=== PATIENT | male | born 1965 | race Caucasian/White ===

== ENCOUNTER 2016-08-02 11:13 | Day surgery (SDC) | payer OTHER ==
[~2016-08-02] VITALS: Ht 177.8 cm; Wt 89.3 kg
[~2016-08-02 11:13] MED LIST: ALPR0.5T6 ORAL; OMEP20CA16 PO
[2016-08-02 12:10] VITALS: BP 113/73; PULSE 79; RESP 16
[2016-08-02 12:17] VITALS: Ht 177.8 cm; Wt 89.3 kg
[2016-08-02] MEDS ORDERED: FAMO20TA18 PO (12:27)
[2016-08-02] MEDS ORDERED: PROPOFOL 20 ML ONE (12:57)
[2016-08-02 13:32] VITALS: BP 113/69; PULSE 64; RESP 12
[2016-08-02 13:55] VITALS: BP 110/74; PULSE 66; RESP 24
--- NOTE | 2016-08-02 14:33 | GILP ---
DATE OF PROCEDURE: NAME OF PROCEDURES: Esophagogastroduodenoscopy and biopsy. SURGEON: Lynne Frausto MD PREOPERATIVE DIAGNOSES: 1. Abdominal pain. 2. Chronic heartburn. POSTOPERATIVE DIAGNOSES: 1. Hiatal hernia. 2. Gastroesophageal reflux disease. 3. Gastritis with erosions. 4. Gastric mucosal biopsies were taken for Helicobacter pylori test. INDICATION FOR THE PROCEDURE: Mr. Johann Reddy is a 51-year-old male patient who had upper abdomin al pain and chronic heartburn, not responding to therapy. The patient was scheduled for endoscopic examination for further evaluation. The procedure and possible complications are well explained to the patient. The patient understood and consented to the procedure. DESCRIPTION OF PROCEDURE: Under the influence of anesthesia, the gastroscope was carefully introduc ed into the esophagus, and under direct vision, it was advanced to the stomach and through the pylor us into the duodenal bulb and descending duodenum. FINDINGS: ESOPHAGUS: The patient had hiatal hernia and gastroesophageal reflux disease. STOMACH: He had gastritis with erosions. Gastric mucosal biopsies were taken for H pylori test. DUODENUM: Normal. He tolerated the procedure very well and there was no complication from the procedure. At the end o f the procedure, he was awake with stable vital signs and he was discharged home to the care of his family. IMPRESSION: 1. Hiatal hernia. 2. Gastroesophageal reflux disease. 3. Gastritis with erosions. 4. Gastric mucosal biopsies were taken for Helicobacter pylori test. PLAN: 1. Omeprazole 40 mg p.o. every morning. 2. Await H pylori test report. Dictated By: LYNNE MCLEAN/PAT Conf#: [id number] DID#: [id number]
--- NOTE | 2016-08-05 14:32 | CONS ---
DATE OF ADMISSION: 08/02/2016 DATE OF CONSULTATION: TYPE OF CONSULTATION: Preoperative gastroenterology. I thank you very much for this kind referral. HISTORY OF PRESENT ILLNESS: Mr. Johann Reddy is a 51-year-old male patient who has been referred t o me for further evaluation of abdominal pain. The patient says he has got epigastric pain and chrome cleaner lydia heartburn not responding to therapy. At times the pain is severe. The patient went to the [facility] room. He had abdominal CT scan done, and it was negative. There is no past history of peptic ulcer disease. He is not taking any nonsteroidal anti-inflammatory agents. His appetite has been good, and he is not losing any weight. There is no history of gallstones. He does not have any fev er, chills or jaundice. There is no history of liver disease. The patient also gives history of co [place] polyps. He had last colonoscopy 7 years ago, and he has family history of colon cancer. He nee ds screening colonoscopy. He is not a hypertensive or diabetic. He does not have any heart disease or lung problem. There is no history of kidney disease. He has anxiety disorder, and he takes Mariusz ax off and on. SOCIAL HISTORY: He is a nonsmoker. He does not abuse alcohol. FAMILY HISTORY: Particular for a history of colon cancer in his father. ALLERGIES: THERE IS NO HISTORY OF SIGNIFICANT DRUG ALLERGY. MEDICATIONS: Xanax. PHYSICAL EXAMINATION: GENERAL: He is 5 feet 10 inches tall, and he weighs 195 pounds. HEART: Normal first and second heart sounds. LUNGS: Clear. ABDOMEN: Soft without any distention. Liver and spleen not palpable. There are no masses. There is no focal tenderness. Normal bowel sounds are heard. CENTRAL NERVOUS SYSTEM: Examination does not reveal any focal neurological deficit. IMPRESSION: 1. Upper abdominal pain and chronic heartburn not responding to therapy. 2. The patient had abdominal CT scan, and according to him, it was normal. 3. Family history of colon cancer. 4. The patient had colonoscopy 7 years ago, and colon polyps were removed. 5. The patient needs screening colonoscopy. 6. Anxiety disorder. The patient is on Xanax. PLAN: 1. Omeprazole 40 mg p.o. q.a.m. 2. Endoscopic examination to rule out peptic ulcer disease and erosive esophagitis. 3. Screening colonoscopy at a later date. 4. Because of the anxiety disorder and the use of Xanax, which makes him resistant to narcotics, he needs monitored anesthesia care for the procedures. The procedures and possible complications were well explained to the patient. The patient understan ds and consents to the procedures. I thank you once again. With warmest personal regards, Dictated By: LYNNE MCLEAN/PAT Conf#: [id number] DID#: [id number]
== END 2016-08-02 15:56 | disposition home or self-care (01) ==
LOC: GIL 11:13
PROVIDERS: ATTEND Internal Medicine Gastroenterology
DX: K44.9 Diaphragmatic hernia without obstruction or gangrene (principal); K21.9 Gastro-esophageal reflux disease without esophagitis; K29.60 Other gastritis without bleeding; F41.8 Other specified anxiety disorders; Z80.0 Family history of malignant neoplasm of digestive organs
CPT/HCPCS: 43239; 87081; Z7610